=== PATIENT | male | born 1955 | race Caucasian/White ===

== ENCOUNTER → 2017-10-14 | Day surgery (SDC) | payer OTHER ==
--- NOTE | 2017-10-13 14:07 | History & Physical Pre-Op ---
General Information and HPI History of Present Illness: Patient presents for evaluation of newly discovered right inguinal hernia. There is pain and swelling present for 2 weeks. There is new onset of constipation associated with bulging. He reduces the hernia with improvement in his constipation. No nausea or vomiting. Currently he feels well. Allergies/Medications Allergies: Coded Allergies: shellfish derived (Intermediate, 01/15/16) Penicillins (01/15/16) Uncoded Allergies: BEE VENOM (Severe, ANAPHYLAXIS 01/15/16) Home Med list Epinephrine (Epipen 2-Oziel) 0.3 MG/0.3 ML AUTO.INJCT 0.3 MG IM AD PRN ALLERGIC RESPONSE (Reported) Past History Medical History Neurological: NONE EENT: NONE Cardiovascular: NONE Respiratory: NONE Gastrointestinal: NONE Hepatic: NONE Renal: NONE Musculoskeletal: NONE Psychiatric: NONE Endocrine: NONE Blood Disorders: NONE Cancer(s): NONE Surgical History Pertinent Surgical History: none Past Family/Social History Psychosocial History Smoking Status: Never Smoked ETOH Use: denies use Illicit Drug Use: denies illicit drug use Review of Systems Review of Systems: Patient reports arthralgias/joint pain (left knee) but reports no muscle aches, no muscle weakness, and no back pain. He reports no fatigue, no fever, no night sweats, no significant weight gain, no significant weight loss, and no exercise intolerance. He reports no abnormal moles, no jaundice, no hives, no eczema, and no rashes. He reports no cough, no wheezing, no shortness of breath, and no coughing up blood. He reports no chest pain, no arm pain on exertion, no shortness of breath when walking, no shortness of breath when lying down, no palpitations, and no known heart murmur. He reports normal appetite, no abdominal pain, no vomiting, no vomiting blood, no bloating, no diarrhea, no belching, no constipation, no regurgitation, and no rectal bleeding. He reports no incontinence, no difficulty urinating, no hematuria, and no increased frequency. Exam & Diagnostic Data Last 24 Hrs of Vital Signs/I&O Patient is a 62-year-old male. Constitutional: General Appearance: healthy-appearing, well-nourished, and well- developed. Level of Distress: no acute distress. Ambulation: ambulating normally. Head: Head: normocephalic and atraumatic. Neck: Neck: supple, trachea midline, no masses, and full range of motion. Thyroid: no enlargement or nodules and non-tender. Lymph Nodes: no cervical LAD, supraclavicular LAD, axillary LAD, or inguinal LAD. Cardiovascular: Heart Auscultation: normal S1 and S2; no murmurs, rubs, or gallops; and regular rate and rhythm. Lungs: Respiratory effort: no dyspnea. Percussion: no dullness, flatness, or hyperresonance. Auscultation: no wheezing, rales/crackles, or rhonchi and breath sounds normal, good air movement, and clear to auscultation. Back: Thoracolumbar Appearance: normal curvature. Abdomen: Inspection and Palpation: no tenderness, guarding, masses, rebound tenderness, or CVA tenderness and soft and non-distended. Bowel Sounds: normal. Liver: non-tender and no hepatomegaly. Spleen: non-tender and no splenomegaly. Hernia: inguinal (bilateral reducible. small left, fat containing. Bowel containing right.). Skin: Inspection and palpation: no rash, lesions, ulcer, induration, nodules, jaundice, or abnormal nevi and good turgor. Musculoskeletal:: Extremities: no cyanosis, edema, varicosities, or palpable cord. Motor Strength and Tone: normal tone and motor strength. Joints, Bones, and Muscles: no contractures, malalignment, tenderness, or bony abnormalities and normal movement of all extremities. Assessment/Plan Assessment/Plan: Bilateral inguinal hernia - There is a bowel containing right inguinal hernia that is symptomatic. He has a small fat-containing left inguinal hernia. Recommend laparoscopic and/or robotic repair of both. K40.20: Bilateral inguinal hernia, without obstruction or gangrene, not specified as recurrent Discussion Notes Discussed laparoscopic preperitoneal hernia repair with mesh, the need for general anesthesia to perform it and the outpatient nature of surgery. Discussed the outcomes of surgery including 3-5% recurrence rate, 1% infection and bleeding risk. Discussed the permanent nature of mesh for repair and need for removal if infection occurs. Discussed the small risk of testicular vessel injury and vas deferens injury (males). As Ranked By This Provider Problem List: 1. Bilateral inguinal hernia
[~2017-10-14] VITALS: Ht 175.3 cm; Wt 76.4 kg
[~2017-10-14] MED LIST: EPIPEN 2-P0.3 MG/0.3 IM
--- NOTE | 2017-10-14 10:34 | Operative Report ---
Operative/Inv Procedure Report Surgery Date: 10/14/17 Name of Procedure: Laparoscopic bilateral inguinal hernia repair Pre-Operative Diagnosis: Bilateral inguinal hernia Post-Operative Diagnosis: Same Estimated Blood Loss: scant Surgeon/Advertising Material Distributor: Juan WAGNER,Olman Prince/Daquan FONTAINE Anesthesia: general endotracheal tube Implants: Parietex Operative/Procedure Note Note: After consent patient is brought to the operating room laid supine. General anesthesia was obtained and the abdomen was prepped and draped. Skin was anesthetized with local anesthesia and a transverse infraumbilical incision made sharply. We identified the rectus fascia and incised transversely. Stay sutures were placed. Rectus muscle was retracted laterally and a dissecting balloon placed posterior to it. It was inflated under direct vision the camera and replaced with a blunt Hale port. Gas was instilled. 2, 5 mm ports were placed in the infraumbilical midline after local anesthesia was instilled and under direct vision and camera. Began our dissection at the pubis and delineated the symphysis. Maco's ligament was identified and cleared. Then dissected laterally and developed the iliopubic tract. The cord structures were circumferentially dissected. There is a moderate sized indirect sac which was dissected free from the cord structures and reflected medially. There was a small associated cord lipoma. It, too, was dissected free and reflected medially. Once the dissection was completed a right-sided piece of Parietex mesh was placed in the cavity. It was placed around the cord structures re- create the internal ring and cover the femoral and direct spaces as well. The mesh was tacked medially to keep it in proper position while we then turned attention to the left side. In a similar fashion dissection was carried forth. There was a fat-containing indirect hernia which was delivered and reflected medially. Left-sided mesh was placed in a similar fashion but was not tacked. Gas was allowed to escape on maintaining proper orientation of the mesh. The fascia was closed with 0 Vicryl suture. Skin incisions closed with 4-0 Vicryl. Steri-Strips and sterile dressing applied. Sponge and needle counts are correct. Findings: Indirect CC: Amelia WAGNER,Higinio Moore
== END ==
LOC: STS 03:21
DX: K40.20 Bilateral inguinal hernia, without obstruction or gangrene, not specified as recurrent (principal)
CPT/HCPCS: C1781; J0131; J2250; J3490